=== PATIENT | female | born 1980 | race Caucasian/White ===

== ENCOUNTER → 2019-04-22 | Outpatient (CLI) | payer OTHER ==
[~2019-04-22] MED LIST: IOPAMIDOL 370 MG/ML 200 ML INFUS..BTL INJ ONE; SODIUM CHLORIDE 0.9% 50ML 50 ML ONE
--- NOTE | 2019-04-22 18:32 | Diagnostic Imaging Report ---
EXAMINATION: CT of the pelvis with contrast. TECHNIQUE: Spiral CT images of the pelvis were performed from the L4 level to the lesser trochanters after the intravenous administration of 100 cc of Isovue 370. Coronal and sagittal reformatted images were obtained. COMPARISON: None. CLINICAL HISTORY:Left lower quadrant abdominal wall mass, rule out endometrioma, 39-year-old female DISCUSSION: ABDOMEN/PELVIS: PELVIC ORGANS/BLADDER: Corpus luteum cyst on the left. Small simple ovarian cyst on the right. The bladder is normal. The uterus is normal. PERITONEUM/RETROPERITONEUM: Reactive fluid in the low pelvis.. LYMPH NODES: No intra-abdominal, retroperitoneal, pelvic or inguinal lymphadenopathy. VESSELS: Visualized major vessels are patent. GI TRACT: No distention or wall thickening. The appendix is seen and is normal BONES AND SOFT TISSUE: No bony destructive lesions. Small 16 mm soft tissue implant anterior to the rectus abdominis musculature on the left (series 2, image 30). IMPRESSION: 16 mm soft tissue implant anterior to the left rectus abdominis musculature is nonspecific. Per history, this could represent an endometrial implant, particularly if there is prior instrumentation in this region or prior history of endometriomas, however this remains nonspecific on imaging. Consider dedicated ultrasound with potential biopsy for further characterization. Signed by: Ru Lockhart MD on 04/22/2019 6:29 PM
== END ==
LOC: CT 16:31
PROVIDERS: ATTEND Surgery
DX: R19.04 Left lower quadrant abdominal swelling, mass and lump (principal)
CPT/HCPCS: 72193; Q9967

== ENCOUNTER → 2019-06-03 | Day surgery (SDC) | payer OTHER ==
[2019-05-28 09:47] LABS: BASOPHILS % 0.5 % (0.0-1.0); EOSINOPHILS # (AUTO) 0.2 (0.0-0.4); EOSINOPHILS % 2.9 % (0.0-6.0); HEMATOCRIT 36.8 % (34.2-44.1); LYMPHOCYTES # (AUTO) 1.9 (1.0-3.2); LYMPHOCYTES % 30.9 % (18.0-39.1); MEAN CORPUSCULAR HEMOGLOBIN 31.3 pg (28-32); MEAN CORPUSCULAR HGB CONC 32.6 g/dL (31-35); MEAN CORPUSCULAR VOLUME 96.1 fL (81-99); MONOCYTES # (AUTO) 0.4 (0.2-0.8); MONOCYTES % 6.1 % (4.4-11.3); NEUTROPHILS # (AUTO) 3.7 (2.1-6.9); NEUTROPHILS % 59.3 % (38.7-80.0); PLATELET COUNT 203 x10e3/uL (140-360); RED BLOOD COUNT 3.83 x10e6/uL (3.6-5.1); RED CELL DISTRIBUTION WIDTH 14.1 % (11.7-14.4)
[2019-05-28 10:03] LABS: ANION GAP 9.8 mmol/L (8-16); BLOOD UREA NITROGEN 10 mg/dL (7-26); BUN/CREATININE RATIO 13 (6-25); CALCIUM 8.9 mg/dL (8.4-10.2); CARBON DIOXIDE 25 mmol/L (22-29); CHLORIDE 106 mmol/L (98-107); CREATININE, SERUM 0.75 mg/dL (0.57-1.11); EST GLOMERULAR FILTRATION RATE > 60 ML/MIN (60-); GLUCOSE 83 mg/dL (74-118); POTASSIUM 4.8 mmol/L (3.5-5.1); SODIUM 136 mmol/L (136-145)
[~2019-06-03] MED LIST changes: +BUPIVACAINE 0.25%/EPI 30ML SDV INJ ONE; +CEFAZOLIN SOD 1 GM VIAL ONE; +DEXAMETHASONE SOD PHOS INJ 4 MG/ML VIAL ONE; +FENTANYL CITRATE/PF 100MCG/2 ML INJ ONE; +GLYCOPYRROLATE INJ 1MG/ 5 ML SYR ONE; +HYDROMORPHONE 2MG/ML 2 MG/ML ML ONE; -IOPAMIDOL 370 MG/ML 200 ML INFUS..BTL INJ ONE; +KETOROLAC TROMETHAMINE 30 MG/ML VIAL ONE; +LEVOXYL112 MCG PO; +LIDOCAINE HCL 2% LOCAL INJ 5 ML SDV VIAL INJ ONE; +MEPERIDINE HCL INJ 25 MG/ML VIAL ONE; +METOCLOPRAMIDE HCL 10 MG/2ML VIAL ONE; +MIDAZOLAM HCL 2 MG/2 ML VIAL ONE; +NEOSTIGMINE 5 MG/5ML SYR ONE; +ONDANSETRON HCL INJ 2MG/ML 2ML 2 MG/ML VIAL ONE; +PROPOFOL IV EMULSION 10 MG/ML 20 ML VIAL ONE; +ROCURONIUM BROMIDE 10 MG/ML 5ML VIAL ONE; +SEVOFLURANE INHAL SOLN 250 ML PEN BTL ONE; -SODIUM CHLORIDE 0.9% 50ML 50 ML ONE
--- OUTSIDE RECORDS SUMMARY | 2019-06-03 06:34 | XMS REPORT | Continuity of Care Document ---
Author Author [facility] Organization [facility] Address Unknown Phone Unavailable Care Team Providers Care 3D Modeler Name Role Phone [place] Unavailable Unavailable Problems Problem Status Onset Date Classification Date Reported Comments Source Acute upper respiratory infection 04/17/2017 Diagnosis 04/17/2017 [facility] Tobacco user 04/17/2017 Diagnosis 04/17/2017 [facility] Allergic rhinitis 09/07/2016 Diagnosis 09/07/2016 [facility] Acute Suppurative Otitis Media without Spontaneous Rupture of Ear Drum Problem 04/17/2017 [facility] Acute Upper Respiratory Infection Problem 04/17/2017 [facility] Allergic Rhinitis Problem 04/17/2017 [facility] Influenza Problem 04/17/2017 [facility] Carbuncle of Buttock Problem 04/17/2017 [facility] Skin Lesion Problem 04/17/2017 [facility] Cough Problem 04/17/2017 [facility] Medications Medication Details Route Status Patient Instructions Ordering Provider Order Date Source Acetaminophen 500 MG / Dextromethorphan Hydrobromide 20 MG / Guaifenesin 200 MG / Pseudoephedrine Hydrochloride 60 MG Oral Tablet Duraflu 60 mg-20 mg-200 mg-500 mg tablet Take 1 tablet 4 times a day by oral route for 10 days. Active 09/18/2011 [facility] Brompheniramine Maleate 0.4 MG/ML / Dextromethorphan Hydrobromide 2 MG/ML / Pseudoephedrine Hydrochloride 6 MG/ML Oral Solution [Bromfed DM] Bromfed DM 2 mg-30 mg-10 mg/5 mL syrup Take 10 mL every 4 hours by oral route. Active [facility] 24 HR Bupropion Hydrochloride 150 MG Extended Release Oral Tablet bupropion HCl XL 150 mg 24 hr tablet, extended release Active [facility] Cholecalciferol 2000 UNT Oral Capsule cholecalciferol (vitamin D3) 2,000 unit capsule TAKE ONE CAPSULE BY MOUTH EVERY DAY -TO REPLACE 50,000U CAPSULE Active [facility] Clindamycin 150 MG Oral Capsule clindamycin 150 mg capsule Active [facility] Cyclobenzaprine hydrochloride 5 MG Oral Tablet cyclobenzaprine 5 mg tablet Active [facility] Fluticasone propionate 0.05 MG/ACTUAT Metered Dose Nasal [place] fluticasone 50 mcg/actuation nasal spray,suspension Inhale 2 sprays into each nostril EVERY DAY Active [facility] Folgard OS 500 mg-1.1 mg tablet Folgard OS 500 mg-1.1 mg tablet Active [facility] Ibuprofen 800 MG Oral Tablet ibuprofen 800 mg tablet Take 1 tablet 3 times a day by oral route with meals as needed for fever, chills and headache. for 10 days. Active [facility] levocetirizine dihydrochloride 5 MG Oral Tablet levocetirizine 5 mg tablet Take 1 tablet every day by oral route for 30 days. Active [facility] Levothyroxine Sodium 0.1 MG Oral Tablet levothyroxine 100 mcg tablet Active [facility] Levothyroxine Sodium 0.112 MG Oral Tablet levothyroxine 112 mcg tablet Active [facility] Levothyroxine Sodium 0.088 MG Oral Tablet levothyroxine 88 mcg tablet Active [facility] Lo Loestrin Fe 1 mg-10 mcg (24)/10 mcg (2) tablet Lo Loestrin Fe 1 mg-10 mcg (24)/10 mcg (2) tablet Active [facility] methylprednisolone 4 mg tablets in a dose pack methylprednisolone 4 mg tablets in a dose pack Active [facility] Ondansetron 8 MG Disintegrating Oral Tablet ondansetron [address] 1 tablet every 8 hours by translingual route with meals as needed for nausea for 2 days. Active [facility] Phentermine Hydrochloride 37.5 MG Oral Tablet phentermine 37.5 mg tablet Active [facility] Prednisone 20 MG Oral Tablet prednisone 20 mg tablet Take 1 tablet every day by oral route with meals for 5 days. Active [facility] Spironolactone 50 MG Oral Tablet spironolactone 50 mg tablet Active [facility] Oseltamivir 75 MG Oral Capsule [Tamiflu] Tamiflu 75 mg capsule Take 1 capsule twice a day by oral route with meals as directed for 5 days. Active [facility] tramadol hydrochloride 50 MG Oral Tablet tramadol 50 mg tablet Active [facility] Ergocalciferol 78916 UNT Oral Capsule Vitamin D2 50,000 unit capsule Active [facility] Blisovi 24 Fe 1 mg-20 mcg (24)/75 mg (4) tablet Blisovi 24 Fe 1 mg-20 mcg (24)/75 mg (4) tablet Active [facility] levocetirizine dihydrochloride 5 MG Oral Tablet [Xyzal] Xyzal 5 mg tablet Take 1 tablet every day by oral route for 30 days. Active [facility] Allergies, Adverse Reactions, Alerts No Known Medication Allergies Immunizations Immunization Date Given Site Status Last Updated Comments Source influenza, seasonal, injectable 08/20/2015 completed [facility] Results Order Name Results Value Reference Range Date Interpretation Comments Source RESULT negative 09/07/2016 [facility] SWAB LOCATION Left and Right tonsillar pillars 09/07/2016 [facility] Pathology Reports No Data Provided for This Section Diagnostic Reports No Data Provided for This Section Consultation Notes No Data Provided for This Section Discharge Summaries No Data Provided for This Section History and Physicals No Data Provided for This Section Vital Signs Vital Sign Value Date Comments Source Diastolic (mm Hg) 68 04/17/2017 [facility] Height 65 04/17/2017 [facility] Systolic (mm Hg) 112 04/17/2017 [facility] Weight 140 04/17/2017 [facility] Diastolic (mm Hg) 84 09/07/2016 [facility] Height 65 09/07/2016 [facility] Systolic (mm Hg) 128 09/07/2016 [facility] Weight 145 09/07/2016 [facility] Encounters Location Location Details Encounter Type Encounter Number Reason For Visit Attending Provider ADM Date DC Date Status Source [place] - [facility] - [id number] Tegan Howell, LOAN PROCESSOR: [address] [place] [address], Ph. [id number] Tegan Howell 09/07/2016 [facility] [place] [id number] Jacobomeroly Brooks, LOAN PROCESSOR-C: [address] [place] [address], Ph. [id number] Binh Brooks 04/17/2017 [facility] Procedures Procedure Code Date Perfomer Comments Source Anesth Repair of Hernia [facility] Assessment and Plan No Data Provided for This Section Plan of Care No Data Provided for This Section Social History Social History Date Source Smoking Status Current Some Day Smoker 09/08/2011 [facility] Family History No Data Provided for This Section Advance Directives No Data Provided for This Section Functional Status No Data Provided for This Section
--- OUTSIDE RECORDS SUMMARY | 2019-06-03 06:34 | XMS REPORT | Encounter Summary ---
Author Organization Unknown Address [address] [place] [address] Phone [phone] Care Team Providers Care Try Out Person Name Role Phone Santosh Dubois MD 2 [phone] Reason for Visit Medical Complaint Instructions 1. Acute upper respiratory infection upper respiratory infection (cold): care instructions Bromfed DM 2 mg-30 mg-10 mg/5 mL syrup fluticasone 50 mcg/actuation nasal spray,suspension 2. Tobacco user stopping smoking: care instructions Discussion Note: None recorded. Plan of Care Patient Instructions Maintain proper hand hygiene to prevent spreading the virus. Get plenty of rest. Drink plenty of fluids, enough so that your urine is light yellow or clear like water. Take an azih-zhd-thofwie pain medicine if needed, such as acetaminophen (Tylenol), ibuprofen (Advil, Motrin), or naproxen (Aleve), to relieve fever, headache, and muscle aches. Take Bromfed DM at night and Tessalon perles in the day time. Avoid driving or handling heavy machinery due to the side effect of drowsiness from bromfed medication. Try OTC nasal saline spray for nasal congestion Take a probiotics daily to help boost your immune system. Seek care ( PCP, urgent care, ER) if symptoms worsens, cough worsens, wheezing develops, SOB develops or difficulty breathing develops.. Reminders Provider Appointments None recorded. Lab None recorded. Referral None recorded. Procedures None recorded. Surgeries None recorded. Imaging None recorded. Medications Name Start Date Bromfed DM 2 mg-30 mg-10 mg/5 mL syrup Take 10 mL every 4 hours by oral route. bupropion HCl XL 150 mg 24 hr tablet, extended release cholecalciferol (vitamin D3) 2,000 unit capsule TAKE ONE CAPSULE BY MOUTH EVERY DAY -TO REPLACE 50,000U CAPSULE clindamycin 150 mg capsule cyclobenzaprine 5 mg tablet fluticasone 50 mcg/actuation nasal spray,suspension Inhale 2 sprays into each nostril EVERY DAY Folgard OS 500 mg-1.1 mg tablet ibuprofen 800 mg tablet Take 1 tablet 3 times a day by oral route with meals as needed for fever, chills and headache. for 10 days. levocetirizine 5 mg tablet Take 1 tablet every day by oral route for 30 days. levothyroxine 100 mcg tablet levothyroxine 112 mcg tablet levothyroxine 88 mcg tablet Lo Loestrin Fe 1 mg-10 mcg (24)/10 mcg (2) tablet methylprednisolone 4 mg tablets in a dose pack ondansetron [address] 1 tablet every 8 hours by translingual route with meals as needed for nausea for 2 days. phentermine 37.5 mg tablet prednisone 20 mg tablet Take 1 tablet every day by oral route with meals for 5 days. spironolactone 50 mg tablet Tamiflu 75 mg capsule Take 1 capsule twice a day by oral route with meals as directed for 5 days. tramadol 50 mg tablet Vitamin D2 50,000 unit capsule Medications Administered None recorded. Vitals Height Weight BMI Blood Pressure 5 ft 5 in 140 lbs 23.3 112/68 Lab Results None recorded. Allergies Code Code System Name Reaction Severity Onset NKDA Problems Name Status Onset Date Source Acute Suppurative Otitis Media without Spontaneous Rupture of Ear Drum Active Encounter Acute Upper Respiratory Infection Active Encounter Allergic Rhinitis Active Encounter Influenza Active Encounter Carbuncle of Buttock Active Encounter Skin Lesion Active History Cough Active Encounter Procedures Date Name Performed by Anesth Repair of Hernia Information not available Vaccine List Vaccine Type influenza, seasonal, injectable 08/19/2015 Social History Smoking Status Current Some Day Smoker Past Encounters 04/17/2017 Acute Upper Respiratory Infection; Tobacco User Binh Brooks, [facility]-C: [address] [place] [address], Ph. History of Present Illness [id number] Reported By: Patient HPI: Location: throat. Quality: productive cough, sore throat, nasal/sinus congestion. Duration: 2days. Severity: mild. Onset/Timing: gradual. Context: no sick contacts, no foreign travel, non-smoker. Modifying factors: OTC medication. Associated Symptoms: no shortness of breath, no wheezing, no change in number of pillows needed to sleep at night, no sweats, no significant weight gain, no significant weight loss, no vomiting, no diarrhea, no rash, no nausea, no fever, no headache, yellow-green, thick sputum, fatigue, morning cough, sore throat, muscle aches Review of Systems:ROS as noted in the HPI Review of Systems Basic Reported By: Patient Physical Exam Adult Basic, Adult Female Complete Reported By: Patient Constitutional: General Appearance: healthy-appearing, well-nourished, well-developed. Level of Distress: NAD. Ambulation: ambulating normally Psychiatric: Mental Status: active and alert. Orientation: to time, to place, to person Lix-Jhtf-Cahbm-Throat: Ears: no lesions on external ear, no outer ear tenderness, EACs clear, TMs clear. Hearing: no hearing loss. Nose: no lesions on external nose, nares patent, no septal deviation, nasal passages clear, no sinus tenderness, nasal discharge, nasal discharge--rhinorrhea, post nasal drip. Lips, Teeth, and Gums: no mouth or lip ulcers, no bleeding gums, normal dentition. Oropharynx: moist mucous membranes, no exudates, tonsils not enlarged, erythema Neck: Lymph Nodes: no cervical LAD, no supraclavicular LAD Lungs: Respiratory effort: no dyspnea, no tachypnea, no use of accessory muscles, no intercostal retractions. Auscultation: breath sounds normal Cardiovascular: Heart Auscultation: RRR, no murmurs Neurologic: Gait and Station: normal gait, normal station
--- OUTSIDE RECORDS SUMMARY | 2019-06-03 06:35 | XMS REPORT ---
Author Author [facility] Address Unknown Phone Unavailable Care Team Providers Care Ceramic Tiler Name Role Phone Paola JIMENEZ Unavailable Unavailable Problems This patient has no known problems. Allergies, Adverse Reactions, Alerts This patient has no known allergies or adverse reactions. Medications This patient has no known medications. Results Test Description Test Time Test Comments Text Results Atomic Results Result Comments CT PELVIS W 2019-04-22 18:23:00 [facility] [address] [place] [address] Patient Name: YESENIA GROSSMAN MR #: [id number] : 1980 Age/Sex: 39/F Req #: [id number] [facility] Physician: Ordered by: RAMYA JIMENEZ MD Report #: [id number] Location: CT Room/Bed: Procedure: [id number] CT/CT PELVIS W Exam Date: 04/22/19 Exam Time: 1730 REPORT STATUS: Signed EXAMINATION: CT of the pelvis with contrast. TECHNIQUE: Spiral CT images of the pelvis were performed from the L4 level to the lesser trochanters after the intravenous administration of 100 cc of Isovue 370. Coronal and sagittal reformatted images were obtained. COMPARISON: None. CLINICAL HISTORY:Left lower quadrant abdominal wall mass, rule out endometrioma, 39-year-old female DISCUSSION: ABDOMEN/PELVIS: PELVIC ORGANS/BLADDER: Corpus luteum cyst on the left. Small simple ovarian cyst on the right. The bladder is normal. The uterus is normal. PERITONEUM/RETROPERITONEUM: Reactive fluid in the low pelvis.. LYMPH NODES: No intra-abdominal, retroperitoneal, pelvic or inguinal lymphadenopathy. VESSELS: Visualized major vessels are patent. GI TRACT: No distention or wall thickening. The appendix is seen and is normal BONES AND SOFT TISSUE: No bony destructive lesions. Small 16 mm soft tissue implant anterior to the rectus abdominis musculature on the left (series 2, image 30). IMPRESSION: 16 mm soft tissue implant anterior to the left rectus abdominis musculature is nonspecific. Per history, this could represent an endometrial implant, particularly if there is prior instrumentation in this region or prior history of endometriomas, however this remains nonspecific on imaging. Consider dedicated ultrasound with potential biopsy for further characterization. Signed by: Ru Pham MD on 04/22/2019 6:29 PM Dictated By: SANAZ PHAM MD 28 Transcribed By: LENKA on 04/22/191828 COPY TO: RAMYA JIMENEZ MD
--- OUTSIDE RECORDS SUMMARY | 2019-06-03 06:35 | XMS REPORT | Encounter Summary ---
Author Organization Unknown Address [address] [place] [address] Phone [phone] Care Team Providers Care Director Of Corporate Communications Name Role Phone Santosh Dubois MD 2 [phone] Reason for Visit Medical Complaint Instructions 1. Allergic rhinitis rapid strep group A, throat allergies: care instructions Xyzal 5 mg tablet fluticasone 50 mcg/actuation nasal spray,suspension prednisone 20 mg tablet Discussion Note: None recorded. Plan of Care Patient Instructions Please seek care (PCP, Urgent Care, ER) f symptoms get worse or do not resolve in 3 to 4 days or if you notice any signs of infection including fever,redness, tenderness or yellow discharge or onset of shortness of breath, lips or tounge swelling. Please read all the side effects of the medications, if you develop any side effects immediately stop the medication and please contact your PCP/UC/ ER or [facility] or call 911.Patient verbalizes understanding and agrees to the plan. Reminders Provider Appointments None recorded. Lab Rapid Strep Group a, Throat 09/07/2016 [facility] Referral None recorded. Procedures None recorded. Surgeries None recorded. Imaging None recorded. Medications Name Start Date Blisovi 24 Fe 1 mg-20 mcg (24)/75 mg (4) tablet bupropion HCl XL 150 mg 24 hr tablet, extended release cholecalciferol (vitamin D3) 2,000 unit capsule TAKE ONE CAPSULE BY MOUTH EVERY DAY -TO REPLACE 50,000U CAPSULE cyclobenzaprine 5 mg tablet Duraflu 60 mg-20 mg-200 mg-500 mg tablet Take 1 tablet 4 times a day by oral route for 10 days. (Stopped on 09/18/2011) fluticasone 50 mcg/actuation nasal spray,suspension Inhale 2 sprays into each nostril EVERY DAY Folgard OS 500 mg-1.1 mg tablet ibuprofen 800 mg tablet levothyroxine 100 mcg tablet levothyroxine 112 mcg tablet levothyroxine 88 mcg tablet Lo Loestrin Fe 1 mg-10 mcg (24)/10 mcg (2) tablet methylprednisolone 4 mg tablets in a dose pack ondansetron 8 mg disintegrating tablet phentermine 37.5 mg tablet prednisone 20 mg tablet Take 1 tablet every day by oral route with meals for 5 days. spironolactone 50 mg tablet Tamiflu 75 mg capsule tramadol 50 mg tablet Vitamin D2 50,000 unit capsule Xyzal 5 mg tablet Take 1 tablet every day by oral route for 30 days. Medications Administered None recorded. Vitals Height Weight BMI Blood Pressure 5 ft 5 in 145 lbs 24.1 128/84 Lab Results Date Name Result Description Value Range Status Rapid Strep Group a, Throat Result negative Swab Location Left and Right tonsillar pillars Allergies Name Reaction Severity Onset NKDA Problems Name [...] Status Current Some Day Smoker Past Encounters 09/07/2016 Allergic Rhinitis Tegan Dante, [employer]: [address] [place] [address], Ph. History of Present Illness [id number] Reported By: Patient HPI: Quality: sore throat, nasal/sinus congestion. Duration: 5days. Severity: moderate. Onset/Timing: sudden. Context: no sick contacts, no foreign travel, non-smoker, allergies. Modifying factors: OTC medication. Associated Symptoms: no sputum production, no shortness of breath, no wheezing, no change in number of pillows needed to sleep at night, no sweats, no significant weight gain, no significant weight loss, no morning cough, no sore throat, no vomiting, no diarrhea, no rash, no nausea Notes: Pt also reports itchy ears and itchy watery eyes. Review of Systems Basic Reported By: Patient Constitutional: Constitutional: no fever Eyes: Eyes: no eye complaints Obsm-Dovc-Lscwo-Throat: Ears: no ear complaints; itchy ears. Nose: nose/sinus problems. Mouth/Throat: no sore throat, no bleeding gums, no mouth complaints, no teeth problems Cardiovascular: Cardiovascular: no chest pain, no shortness of breath, no known heart murmur Respiratory: Respiratory: no cough, no wheezing, no shortness of breath Gastrointestinal: Gastrointestinal: no abdominal pain, no vomiting / diarrhea Genitourinary: Genitourinary: no urinary complaints, no discharge Musculoskeletal: Musculoskeletal: no muscle aches, no muscle weakness, no arthralgias/joint pain, no back pain Skin: Skin: no abnormal / changing mole, no jaundice, no rashes Neurologic: Neurologic: no loss of consciousness, no weakness, no numbness, no seizures, no dizziness, no headaches Physical Exam Adult Basic, Adult Female Complete Constitutional: General Appearance: healthy-appearing, well-nourished, well-developed. Level of Distress: NAD. Ambulation: ambulating normally Psychiatric: Mental Status: active and alert. Orientation: to time, to place, to person Eyes: Lids and Conjunctivae: non-injected, no discharge, no pallor. Pupils: PERRLA. EOM: EOMI. Lens: clear. Sclerae: non-icteric Jcd-Uddg-Ucvzf-Throat: Ears: no lesions on external ear, no outer ear tenderness, EACs clear, TMs clear. Hearing: no hearing loss. Nose: no lesions on external nose, nares patent, no septal deviation, nasal passages clear, no sinus tenderness, nasal discharge--rhinorrhea, post nasal drip; pale swollen nasal mucosa. Lips, Teeth, and Gums: no mouth or lip ulcers. Oropharynx: moist mucous membranes, no erythema, no exudates, tonsils not enlarged Neck: Neck: supple. Lymph Nodes: no cervical LAD Lungs: Respiratory effort: no dyspnea, no tachypnea. Auscultation: breath sounds normal Cardiovascular: Heart Auscultation: RRR, no murmurs Neurologic: Gait and Station: normal gait Skin: Inspection and palpation: no rash
[2019-06-03 11:40] VITALS: BP 124/82
--- NOTE | 2019-06-03 17:36 | Operative Report ---
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 OPERATION PERFORMED: Resection of abdominal wall tumor with abdominal wall reconstruction. SHEET [employer] SUPERVISOR: ALDO Thomas. ANESTHESIA: General. COMPLICATIONS: None. ESTIMATED BLOOD LOSS: Minimal. DESCRIPTION OF PROCEDURE: With the patient lying in bed in the supine position under good general endotracheal anesthesia, the abdomen was prepped with Betadine solution and draped in the usual manner. An incision was made on the left side of the old Pfannenstiel incision in the left lower quadrant. Incision was deepened to the subcutaneous tissue and immediately a hard irregular mass was encountered. Flaps were then developed in all the directions in the subcutaneous tissue and the incision was deepened all the way down to the fascia. The fascia was then cleared all the way around the mass without violating the mass. The fascia was then opened above and below the mass and the tumor was slowly and carefully resected including the rectus fascia, which was at attached to it. There was no invasion of the underlying rectus muscle present. The mass was totally resected and sent for pathological examination. The whole area was thoroughly irrigated. Perfect hemostasis was ascertained. Again, the rectus muscle was inspected. There were no other lesions identified. The large fascial defect was then closed with #0 PDS suture in this gave us a satisfactory approximation of the fascia. The whole area was then infiltrated all layers on the way out with solution of 0.25% Marcaine. The subcutaneous tissue was approximated with 3-0 Vicryl and the skin was closed with subcuticular 5-0 Vicryl. Benzoin, Steri-Strips, and dressings were applied. The sponge, lap, and needle count was correct. The patient tolerated the procedure well and returned to the recovery room in stable condition. MD TAINA Tovar/MAURAL /[id number]
== END | disposition home or self-care (01) ==
LOC: OR 06:25
PROVIDERS: ATTEND Surgery
DX: N80.8 Other endometriosis (principal); R19.04 Left lower quadrant abdominal swelling, mass and lump; Z01.810 Encounter for preprocedural cardiovascular examination; Z01.812 Encounter for preprocedural laboratory examination; E03.9 Hypothyroidism, unspecified
CPT/HCPCS: 22901; 36415; 80048; 81025; 85025; 88305; 93005; J0690; J1100; J1170; J1885; J2001; J2175; J2250; J2405; J2704; J2765; J3010; J3490; 88304